=== PATIENT | male | born 1965 | race Caucasian/White ===

== ENCOUNTER 2018-11-05 09:57 | Inpatient (IN) | payer OTHER ==
[2018-11-05] MEDS ORDERED: NS 500 ML IV ONE (10:15)
[2018-11-05] MEDS ORDERED: ASPIRIN 81 MG CHEWABLE TAB PO ONE (10:15)
--- NOTE | 2018-11-05 10:20 | EDPHY ---
H & P Stated Complaint: Left shoulder pain; starting at 9:00 am - constant ache Time Seen by Provider: 11/05/18 10:08 HPI/ROS: CHIEF COMPLAINT: Left shoulder and neck ache HISTORY OF PRESENT ILLNESS: 53-year-old male generally healthy arrives via private vehicle complaining of atraumatic left shoulder and left neck "aching sensation" since approximately 9:00 a.m. Today when he arrived at work. He drove a vehicle to work. The discomfort is not reproducible with range of motion. No history of trauma. No upper extremity paresthesia. No midline C- spine pain or trauma. No chest pain. No dyspnea. PRIMARY CARE PROVIDER:No primary care provider REVIEW OF SYSTEMS: 10 systems reviewed and negative with the exception of the elements mentioned in the history of present illness PAST MEDICAL & SURGICAL HISTORY: vasectomy. SOCIAL HISTORY: Nonsmoker. No cocaine use. FAMILY HISTORY: Father with 1st cardiac stenting age early to mid 50s. PHYSICAL EXAM (Prior to examination, patient consented to physical exam, hands were washed and my usual and customary physical exam procedures followed) 1) GENERAL: Well-developed, well-nourished, alert and oriented. Appears to be in no acute distress. 2) HEAD: Normocephalic, atraumatic 3) HEENT: Pupils equal, round, reactive to light bilaterally. Sclera anicteric. Nasopharynx, oropharynx, clear, no lesions. Moist Mucous membranes. 4) NECK: Full range of motion, no meningeal signs. No carotid bruit. Neck is nontender. Range of motion elicits no reproducible pain. 5) LUNGS: Clear auscultation bilaterally, no wheezes, no rhonchi, no retractions. 6) HEART: Regular rate and rhythm, no murmur, no heave, no gallop. 7) ABDOMEN: No guarding, no rebound, no focal tenderness, negative McBurney's, negative Perez's, negative Rovsing's, negative peritoneal sign, 8) MUSCULOSKELETAL: Left upper extremity: No visible signs of trauma. No pain , full range of motion which does not reproduce his symptoms. Negative Homans no palpable cord Moving all extremities, no focal areas of tenderness, no obvious trauma. No peripheral edema or discoloration. 9) BACK: No CVA tenderness, no midline vertebral tenderness, no fluctuance, no step-off, no obvious trauma, no visual or palpable abnormality. 10) SKIN: No rash, no petechiae. 11) Psychiatric: Patient is oriented X 3, there is no agitation. DIFFERENTIAL DIAGNOSIS: In no particular order, including but not limited to myocardial ischemia, pulmonary embolus, chest wall pain, pleural inflammation and pulmonary infectious causes. - Personal History Current Tetanus/Diphtheria Vaccine: Unsure Current Tetanus Diphtheria and Acellular Pertussis (TDAP): Unsure - Medical/Surgical History Hx Asthma: No Hx Chronic Respiratory Disease: No Hx Diabetes: No Hx Cardiac Disease: No Hx Renal Disease: No Hx Cirrhosis: No Hx Alcoholism: No Hx HIV/AIDS: No Hx Splenectomy or Spleen Trauma: No - Social History Smoking Status: Former smoker Constitutional: Initial Vital Signs Temperature (C) 37 C 11/05/18 09:59 Heart Rate 77 11/05/18 09:59 Respiratory Rate 14 11/05/18 09:59 Blood Pressure 155/88 H 11/05/18 09:59 O2 Sat (%) 98 11/05/18 09:59 O2 Delivery Mode Room Air Allergies/Adverse Reactions: No Known Allergies Allergy (Unverified 11/05/18 09:59) Home Medications: Medication Instructions Recorded NK [No Known Home Meds] 11/05/18 Medical Decision Making - Diagnostics Imaging Results: Imaging Impressions Chest X-Ray 11/05/18 10:15 Impression: Chest negative for acute cardiopulmonary abnormality. ED Course/Re-evaluation: 10:18 a.m.: I discussed the case with secondary supervising physician Dr. Jamilah Corey in the ER. The patient has a self-described dull ache to his left shoulder and left neck which is not reproducible range of motion or palpation and has no history of trauma. Patient has a family history concerning for father who had 1st cardiac stenting in his early to mid 50s. Will obtain cardiac diagnostic studies. Will plan on more than likely admission for further cardiac evaluation. 10:38 a.m.: Informed by ER staff patient's troponin elevated at 0.15. Discussed with Dr Corey in ER. EKG shows normal sinus rhythm no ST elevation. Cardiology has been paged. 10:42 a.m.: Discussed the diagnostic results with the patient. He is currently complaining of 7/10 pain. Will administer IV morphine. 10:56 a.m.: Consultation with Dr. Dionte Matson who will come to the ER to evaluate patient, may perform cardiac catheterization today. 10:50 a.m.: Dr. Matson in the ER. Request repeat EKG. 11:40 a.m.: Dr. Matson will plan taking the patient to the cardiac catheterization lab and request hospitalist admit. 11:45 a.m.: Consultation with hospitalist admit to Dr. Rachel Watters 12:24 p.m.: Phone call from Dr. Dionte Matson who will admit patient primarily - Data Points Laboratory Results: Laboratory Results 11/05/18 10:25 11/05/18 10:25 11/05/18 11/05/18 11/05/18 10:27 10:25 10:25 WBC 6.61 10^3/uL 10^3/uL (3.80-9.50) RBC 4.88 10^6/uL 10^6/uL (4.40-6.38) Hgb 14.7 g/dL g/dL (13.7-17.5) Hct 42.9 % % (40.0-51.0) MCV 87.9 fL fL (81.5-99.8) MCH 30.1 pg pg (27.9-34.1) MCHC 34.3 g/dL g/dL (32.4-36.7) RDW 12.6 % % (11.5-15.2) Plt Count 235 10^3/uL 10^3/uL (150-400) MPV 9.1 fL fL (8.7-11.7) Neut % (Auto) 68.3 % % (39.3-74.2) Lymph % (Auto) 24.4 % % (15.0-45.0) [place] % (Auto) 6.1 % % (4.5-13.0) Eos % (Auto) 0.6 % % (0.6-7.6) Baso % (Auto) 0.3 % % (0.3-1.7) Nucleat RBC Rel Count 0.0 % % (0.0-0.2) Absolute Neuts (auto) 4.52 10^3/uL 10^3/uL (1.70-6.50) Absolute Lymphs (auto) 1.61 10^3/uL 10^3/uL (1.00-3.00) Absolute Monos (auto) 0.40 10^3/uL 10^3/uL (0.30-0.80) Absolute Eos (auto) 0.04 10^3/uL 10^3/uL (0.03-0.40) Absolute Basos (auto) 0.02 10^3/uL 10^3/uL (0.02-0.10) Absolute Nucleated RBC 0.00 10^3/uL 10^3/uL (0-0.01) Immature Gran % 0.3 % % (0.0-1.1) Immature Gran # 0.02 10^3/uL 10^3/uL (0.00-0.10) Sodium 140 mEq/L mEq/L (135-145) Potassium 4.5 mEq/L mEq/L (3.5-5.2) Chloride 103 mEq/L mEq/L (97-110) Carbon Dioxide 27 mEq/l mEq/l (22-31) Anion Gap 10 mEq/L mEq/L (6-14) BUN 12 mg/dL mg/dL (7-23) Creatinine 0.8 mg/dL mg/dL (0.7-1.3) Estimated GFR > 60 Glucose 106 mg/dL H mg/dL (70-100) Calcium 9.4 mg/dL mg/dL (8.5-10.4) POC Troponin I 0.15 ng/mL H ng/mL (0.00-0.08) Medications Given: Discontinued Medications Aspirin (Aspirin) 324 mg PO EDNOW ONE Stop: 11/05/18 10:16 Last Admin: 11/05/18 10:27 Dose: 324 mg Sodium Chloride (Ns) 500 mls @ 1,000 mls/hr IV EDNOW ONE PRN Reason: Protocol Stop: 11/05/18 10:44 Last Admin: 11/05/18 10:27 Dose: 500 mls Morphine Sulfate (Morphine) 4 mg IVP EDNOW ONE Stop: 11/05/18 10:44 Last Admin: 11/05/18 10:46 Dose: 4 mg Point of Care Test Results: Chemistry 11/05/18 10:27 POC Troponin I 0.15 ng/mL H ng/mL (0.00-0.08) Departure - Departure Disposition: To OP Cath/Surgery
[2018-11-05 10:40] LABS: PLATELET COUNT 235 10^3/uL (150-400)
[2018-11-05] MEDS ORDERED: VERAPAMIL 5 MG/2 ML VIAL ONE (12:06)
[2018-11-05] MEDS ORDERED: MIDAZOLAM 2 MG/2 ML VIAL ONE ×2 (12:06→13:12)
[2018-11-05] MEDS ORDERED: LIDOCAINE 1% 300 MG/30 ML SDV ONE (12:06)
[2018-11-05] MEDS ORDERED: HEPARIN 10,000 UNIT/10 ML MDV (1,000 UNIT/ML) ONE (12:06)
[2018-11-05] MEDS ORDERED: IOPAMIDOL (ISOVUE-370) 150 ML BTL IV ONE (12:06)
[2018-11-05] MEDS ORDERED: fentaNYL 100 MCG/2 ML INJ ONE (12:06)
--- NOTE | 2018-11-05 12:18 | PDPROPOC ---
Sedation Plan of Care Sedation Plan of Care: vital signs stable, mental status noted, patient educated of risks, benefits, alternatives, patient can tolerate sedation ASA Classification: ASA 3 Planned drugs: fentanyl, midazolam Mallampati Score: Class 2 Mallampati Reference Image: Patient passed 3-3-2 rule?: Yes
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
--- NOTE | 2018-11-05 12:48 | PDDXCAT ---
Diagnostic Cath Note - . Date: 11/05/18 Dental Billing Specialist: Huyen Indication: CCC Class III and IV angina on medical treatment, other (elevated troponin, family history of cardiovascular disease) - Procedure Access: left wrist Procedure: left heart catheterization, coronary angiography, left ventriculogram - Materials Left Heart Cath size: 5F Left Heart Cath materials: JL3.5, JR4.0, pigtail - Findings-Left Heart Catheterization LM: The left main is 6mm in size and short. The vessel bifurcates into a circumflex and LAD system. LAD: The left anterior descending is 3mm in size and gives rise to three diagonal vessels. There is a complex atheroma of 70% involving the bifurcation of the LAD and first diagonal branch. There is a 50% stenosis in the ostium of the first diagonal and 40% stenosis of the second diagonal. The third diagonal is the smallest diagonal and there is an 80% ostial obstruction of the vessel with a subtotal occlusion at the alpha and beta branches. The LAD courses to the anterior apex with luminal irregularities consistent with atherosclerosis. There is a 50% stenosis at the distal third and 80% lesion near the apex. LCX: The circumflex is 4mm and quickly gives rise to a high obtuse marginal branch. There is a 85% ostial obstruction in the high obtuse marginal branch.There is a 90% occlusion in the proximal segment of the left circumflex. RCA: The right coronary artery is 3mm in size and dominant. The vessel gives rise to a PDA and PLV branch. There is an 80% obstruction of the proximal RCA. EDP: 14mmHg LVEF: 65% Wall motion: On the LV gram there is normal LV systolic function. The EF is 65% . There are no resting segmental wall motion abnormalities. The visualized portion of the thoracic aortic valve reveals three sinuses of valsalva most consistent with a trileaflet valve. There is no gradient on pullback across the aortic valve. THere is no evidence of hal dissection or aneurysm formation of the thoracic aorta. - Findings-Right Heart Catheterization AO: 128/62/97 Complications: NONE Estimated blood loss: <50ml Closure method: TR Band Assessment: The patient has severe coronary disease with critical obstruction in the ostial high obtuse marginal branch of 85% and 90% obstruction in the proximal segment of the left circumflex. There is diffuse disease throughout the LAD which courses to the anterior apex with evidence of atherosclerosis. The right coronary system is dominant with an 80% obstruction in the proximal segment of the vessel. Plan: The patient should proceed with bypass surgery with MARCH to the LAD, SVG to the first diagonal, SVG to the circumflex OM and SVG to the high obtuse marginal branch. Intervention: NONE
[2018-11-05] MEDS ORDERED: ETOMIDATE 40 MG/20 ML INJ ONE (13:18)
[2018-11-05] MEDS ORDERED: HYDROCODONE/APAP 5/325 TAB PO PRN (13:58)
[2018-11-05] MEDS ORDERED: OXYCODONE/APAP 5/325 TAB PO PRN (13:58)
[2018-11-05] MEDS ORDERED: NITROGLYCERIN 0.4 MG BTL SL PRN (13:58)
[2018-11-05] MEDS ORDERED: ONDANSETRON 4 MG/2 ML VIAL IVP PRN (13:58)
[2018-11-05] MEDS ORDERED: ATROPINE SULFATE 1 MG/10 ML SYR IVP PRN (13:58)
--- NOTE | 2018-11-05 16:29 | PDMN ---
Medical Necessity Medical necessity: MCG: S390 CABG 4 days ( pend) pt came in with CP-sig family hx. cardiac cath revealed severe coronary disease with critical obstruction in the ostial high obtuse marginal branch of 85% and 90% obstruction in proximal segment of L circ., diffuse disease throughout LAD R coronary system is dominant with 80% obstruction in proximal segment of the vessel. rec: bypass sgy with MARCH to LAD, SVG to first Dg, SVG to circ. OM and SVG to high obtuse marginal branch
--- NOTE | 2018-11-06 15:38 | ASMTCMCOM ---
CM Note CM Note Notes: 11/06/2018 Case Management Note Discussed with RN. Pt admitted with coronary artery disease with a CABG planned for tomorrow. Met w/pt to discuss d/c needs. Pt works at [employer]. Pt is to Heather [phone]. Pt lives with and 3 children ages 20, 18 and 16. The older two children attend [employer] and the 16 y.o. attends [employer]. Case Management will formulate d/c plan after evals post surgery in coordination with surgery team. Anticipating discharge to cardiac outpatient rehab. Case Management d/c poc: to be determined. Case Management to follow. Date Signed: 11/06/2018 03:37 PM Electronically Signed By:Henrietta Wilkinson RN
--- NOTE | 2018-11-06 17:21 | PDCARPN ---
Cardiology Progress Note Chief Complaint: I am feeling Ok without shoulder pain Assessment/Plan: Assessment: 1. 4 vessel coronary disease with severe obstructive coronary disease and plan for bypass surgery on tomorrow afternoon. All questions answered. The patient will require echocardiogram as well as carotid ultrasound prior to CABG tomorrow. Plan: As above 11/06/18 17:18 Reviewed/Discussed With: family, multidisciplinary team Time Spent with Patient: greater than 25 minutes Time Spent with Patient: Greater than 25 minutes spent on this patients care, greater than 50% of time spent counseling, educating, and coordinating care regarding the above mentioned plan. Objective: Vital Signs (8 Hrs) Temp Pulse Resp BP Pulse Ox 11/06/18 16:00 36.7 C 54 L 14 134/76 H 95 11/06/18 12:00 36.6 C 58 L 16 147/91 H 98 Intake/Output (24 Hrs) 11/05/18 11/06/18 11/07/18 05:59 05:59 05:59 Intake Total 2025 Output Total 400 500 Balance 1625 -500 Intake: Oral (ml) 800 IV Intake (ml) 700 IV Infused (ml) 525 Output: Urine (ml) 400 500 Urinal 400 500 Other: Weight 72.575 kg Intake Quantity Yes Sufficient Number of Voids Urinal 1 Result Diagrams: 11/05/18 10:25 11/06/18 03:36 Telemetry: No significant tachy or wei dysrhythmia. Echocardiogram: pending in AM - Physical Exam Constitutional: WDWN, no apparent distress Eyes: PERRL, EOMI, anicteric sclera Ears, Nose, Mouth, Throat: moist mucous membranes Cardiovascular: regular rate and rhythm, no murmurs, no rubs, no gallops Respiratory: clear to auscultate bilat, No reduced air movement Gastrointestinal: normoactive bowel sounds, no tenderness Neurologic: AAOx3 Psychiatric: cooperative - . Pending Discharge Within 24 Hours: No Pending Discharge Within 48 Hours: No ICD10 Worksheet Patient Problems: Problems Problem Status Onset Coronary artery disease Acute - ICD10 Problem Qualifiers (1) Coronary artery disease
[2018-11-06] MEDS ORDERED: TEMAZEPAM 15 MG CAP PO PRN (21:00)
[2018-11-06] MEDS ORDERED: CHLORHEXIDINE GLUC HIBICLENS 118 ML BTL TP SCH (21:00)
[2018-11-06] MEDS: MUPIROCIN 2% 22 GM OINT NS SCH (21:08)
[2018-11-07] MEDS ORDERED: PAPAVERINE HCL 60 MG/2 ML SDV ONE (07:12)
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
[2018-11-07] MEDS ORDERED: AMINOCAPROIC ACID 5 GM/20 ML VIAL IV ONE (09:00)
[2018-11-07] MEDS ORDERED: MANNITOL 25% 12.5 GM/50 ML VIAL IVP ONE (09:00)
[2018-11-07] MEDS ORDERED: VERAPAMIL 5 MG, NITROGLYCERIN 2.5 MG, HEPARIN 500 UNIT, SODIUM BICARBONATE 0.2 MEQ in L... MISC ONE (09:00)
[2018-11-07] MEDS ORDERED: INSULIN REGULAR HUMAN 100 UNIT in NS 100 ML IV ONE (09:00)
[2018-11-07] MEDS ORDERED: niCARdipine/NACL 200 ML IV ONE (09:00)
[2018-11-07] MEDS ORDERED: ceFAZolin 2 GM/DEXTROSE 100 ML IV ONE (09:00)
[2018-11-07] MEDS ORDERED: PHENYLEPHRINE HCL 50 MG in NS 250 ML IV ONE (09:00)
[2018-11-07] MEDS ORDERED: CITRATE DEXTROSE SOLN 500 ML BAG MISC ONE (09:00)
[2018-11-07] MEDS ORDERED: CARDIOPLEGIC SOLUTION 1,052.8 ML PF ONE (09:00)
--- NOTE | 2018-11-07 09:01 | ECHO ---
[email or web address] [address] Main: [phone] Echocardiography Examination Transthoracic Name: JILLIAN HOLLINGSWORTH MR#: Study Date: 11/07/2018 Study Time: 07:54 AM Date of : 1965 Age: 53 year(s) Height: 177.8 cm (70 in.) Weight: 71.21 kg (157 lb.) BSA: 1.88 m2 Gender: Male Examination: Echo Contrast: Image Quality: Rhythm: Normal sinus rhythm Heart Rate: 70 bpm BP: 145 mmHg/83 mmHg Indication: Pre Op CABG Procedure Staff Referring Physician: Associate Professor Of Geography: Reading Physician: Deandra Nieves MD Requesting Provider: Leroy Bolanos MD Ordering Physician: Brian Lindquist Indication: Pre Op CABG Measurements Chambers AV/MV Label Value Normal Value Label Value Normal Value LVOT Vmax 1.11 m/s (0.7m/s - 1.1m/s) AV PGmax 7 mmHg LVOTd 2.1 cm (1.9cm - 2.1cm) AV PGmean 3 mmHg LVOT VTI 22.5 cm (18cm - 22cm) AV Vmax 1.32 m/s LVDd, 2D 4.8 cm (4.2cm - 5.9cm) KENY (Vmax) 2.9 cm2 LVDs, 2D 3.6 cm (2.1cm - 4cm) KENY (VTI) 2.8 cm2 IVSd, 2D 0.9 cm (0.6cm - 1.1cm) MV E Vmax 0.72 m/s LVPWd, 2D 1.1 cm (0.6cm - 1cm) MV A Vmax 0.65 m/s LVEF, 2D 50 % (54% - 74%) MV E/A 1.11 LVOT PGmean 2 mmHg MV E/E' septal 11.4 (0.5 - 1.7) LVOT Vmean 0.67 m/s MV E' septal 0.06 m/s LA Volume, BP 38 ml (18ml - 58ml) MR Vmax 4.28 m/s LADs, 2D 3.6 cm (3cm - 4cm) TV/PV LAESV index, BP 20.2 ml/m2 Label Value Normal Value Additional Vessels PV PGmax 4 mmHg Label Value Normal Value PV Vmax, Caliper 1.06 m/s (0.6m/s - 0.9m/s) AoRoot, MM 3.2 cm (2.2cm - 3.7cm) Conclusions Patient: JILLIAN HOLLINGSWORTH MRN: Study Date: 11/07/2018 Page 1 of 2 07:54 AM 1. The left ventricle is normal in size. Low normal LV systolic function with an ejection fraction of 55%. Mild inferolateral hypokinesis. 2. The right ventricle is normal in size and systolic function. 3. Normal biatrial size 4. Trivial to mild mitral regurgitation. 5. The aortic valve is normal in appearance and function. 6. Unable to estimate PA systolic pressure. 7. No previous echo Findings Left Ventricle: Left ventricle is normal in size. Low normal left ventricular systolic function. The EF is visually estimated to be 55 %. EF range is estimated at 50 % - 55 %. Left ventricle wall thickness is normal. There is mild inferolateral hypokinesis Right Ventricle: Normal size right ventricle. Right ventricular systolic function is normal. Left Atrium: The left atrium is normal in size. Right Atrium: The right atrium is normal in size. Mitral Valve: Mitral valve appears structurally normal. Trivial to mild mitral regurgitation. Aortic Valve: Aortic leaflets are normal in appearance and function. No aortic valve regurgitation. There is no aortic stenosis. Tricuspid Valve: Tricuspid valve leaflets are normal in appearance and function. No tricuspid regurgitation. Pulmonic Valve: Pulmonic leaflets are normal in appearance and function. No pulmonic valve regurgitation is evident. Aorta: The aorta is normal. The aortic root size in M-mode measures 3.2 cm. Aorta Measurements AoRoot, MM is 3.2 cm. Pericardium: The pericardium is normal in appearance. No pericardial effusion. Exam Details Procedure Ordered: Echo (No Signature Object) Patient: JILLIAN HOLLINGSWORTH MRN: Study Date: 11/07/2018 Page 2 of 2 07:54 AM [id number]
[2018-11-07] MEDS ORDERED: LR 1,000 ML IV ONE (09:09)
[2018-11-07] MEDS: MUPIROCIN 2% 22 GM OINT NS SCH ×2 (09:26→21:11)
[2018-11-07] MEDS ORDERED: PROTAMINE SULFATE 50 MG/5 ML VIAL IVP ONE (11:41)
[2018-11-07] MEDS ORDERED: AMINOCAPROIC ACID 5 GM/20 ML VIAL ONE ×3 (11:42→11:47)
[2018-11-07] MEDS ORDERED: NA BICARBONATE 50 MEQ/50 ML VIAL ONE ×2 (11:42→11:44)
[2018-11-07] MEDS ORDERED: CALCIUM CHLORIDE 1 GM/10 ML INJ ONE ×2 (11:43→11:47)
[2018-11-07] MEDS ORDERED: MILRINONE/DEXTROSE/100 ML BAG IV ONE (11:43)
[2018-11-07] MEDS ORDERED: niCARdipine/NACL/200 ML BAG IV ONE (11:44)
[2018-11-07] MEDS ORDERED: HEPARIN 10,000 UNIT/10 ML MDV (1,000 UNIT/ML) ONE ×2 (11:44→11:47)
[2018-11-07] MEDS ORDERED: ceFAZolin 1 GM VIAL ONE (11:45)
[2018-11-07] MEDS ORDERED: ADENOSINE 6 MG/2 ML VIAL ONE (11:45)
[2018-11-07] MEDS ORDERED: NITROGLYCERIN/D5W 50 MG/250 ML BOTTLE IV ONE (11:45)
[2018-11-07] MEDS ORDERED: DOPamine/DEXTROSE 400 MG/250 ML BAG IV ONE (11:45)
[2018-11-07] MEDS ORDERED: AMIODARONE HCL 150 MG/3 ML VIAL ONE ×2 (11:45→11:47)
[2018-11-07] MEDS ORDERED: ALBUMIN 5% 250 ML BOTTLE IV ONE (11:46)
[2018-11-07] MEDS ORDERED: SODIUM BICARBONATE 50 MEQ/50 ML SYR ONE (11:46)
[2018-11-07] MEDS ORDERED: CITRATE DEXTROSE SOLN 500 ML BAG ONE (11:47)
[2018-11-07] MEDS ORDERED: LIDOCAINE 2% 100 MG/5 ML SYR ONE ×2 (11:47→12:03)
[2018-11-07] MEDS ORDERED: MAGNESIUM SULFATE 1 GM/2 ML VIAL ONE (11:48)
[2018-11-07] MEDS ORDERED: methylPREDNISolone SOD SUCC 1 GM/8 ML VIAL ONE (11:48)
[2018-11-07] MEDS ORDERED: MIDAZOLAM 2 MG/2 ML VIAL ONE ×2 (11:55→12:02)
[2018-11-07] MEDS ORDERED: MIDAZOLAM 2 MG/2 ML VIAL IVP ONE (11:56)
[2018-11-07] MEDS ORDERED: DEXMEDETOMIDINE HCL 400 MCG in NS 100 ML IV SCH (12:00)
[2018-11-07] MEDS ORDERED: PROPOFOL/EMULSION 500 MG/50 ML BOTTLE IV ONE ×2 (12:02→15:14)
[2018-11-07] MEDS ORDERED: REMIFENTANIL HCL 1 MG VIAL ONE (12:02)
[2018-11-07] MEDS ORDERED: fentaNYL 250 MCG/5 ML INJ ONE (12:02)
[2018-11-07] MEDS ORDERED: ROCURONIUM 100 MG/10 ML VIAL ONE (12:02)
[2018-11-07] MEDS ORDERED: ePHEDrine SULFATE 25 MG/5 ML SYR ONE (12:03)
[2018-11-07] MEDS ORDERED: DEXAMETHASONE 4 MG/ML VIAL ONE (12:03)
[2018-11-07] MEDS ORDERED: ONDANSETRON 4 MG/2 ML VIAL ONE (12:03)
[2018-11-07] MEDS ORDERED: PHENYLEPHRINE HCL 100 MCG/ML SYR ONE ×2 (12:03→16:51)
[2018-11-07] MEDS ORDERED: LIDOCAINE HCL 160 MG/4 ML LTA KIT TP ONE (12:07)
[2018-11-07] MEDS ORDERED: LABETALOL HCL 5 MG/ML 20 ML MDV ONE (13:13)
--- NOTE | 2018-11-07 13:18 | PDANEPAE ---
ANE History of Present Illness CAD s/f CABG ANE Past Medical History - Cardiovascular History Hx Chest Pain: Yes Hx Coronary Artery / Peripheral Vascular Disease: Yes - Pulmonary History Hx Oxygen in Use at Home: No Hx Sleep Apnea: No Sleep Apnea Screening Result - Last Documented: Negative - Endocrine History Hx Diabetes: No ANE Review of Systems Review of Systems: - Exercise capacity Exercise capacity: >=4 METS ANE Patient History - Allergies Allergies/Adverse Reactions: No Known Allergies Allergy (Unverified 11/05/18 09:59) - Home Medications Home medications: home medication list seen and reviewed Home Medications: NK [No Known Home Meds] 11/05/18 [Last Taken Unknown] - NPO status NPO Status: no food or drink >8 hours NPO Since - Liquids (Date): 11/07/18 NPO Since - Liquids (Time): 00:00 NPO Since - Solids (Date): 11/07/18 NPO Since - Solids (Time): 00:00 - Anes Hx Anes Hx: no prior problems - Smoking Hx Smoking Status: Former smoker - Alcohol Use Alcohol Use: Occasionally (quit 2 years ago) - Family Anes Hx Family Anes Hx: none ANE Labs/Vital Signs - Labs Result Diagrams: 11/05/18 10:25 11/06/18 03:36 - Vital Signs Blood Pressure: 139/92 Heart Rate: 72 Respiratory Rate: 10 O2 Sat (%): 94 Height: 177.8 cm Weight: 71.6 kg ANE Physical Exam - Airway Neck exam: FROM Mallampati Score: Class 2 Mouth exam: normal dental/mouth exam - Pulmonary Pulmonary: no respiratory distress - Cardiovascular Cardiovascular: regular rate and rhythym - ASA Status ASA Status: II ANE Anesthesia Plan Anesthesia Plan: general endotracheal anesthesia Lines/Monitors: arterial line, central line Urgent/Emergent Case: Sarikachayito nannette completed preop but documented later for safe timely pt care
[2018-11-07] MEDS ORDERED: ROCURONIUM 50 MG/5 ML VIAL ONE ×2 (15:55→16:58)
[2018-11-07] MEDS ORDERED: FIBRINOGEN/THROMBIN(HUMAN) 9.5 CM X 4.8 CM PATCH (TACHOSIL) TP ONE (16:40)
[2018-11-07] MEDS ORDERED: NOREPINEPHRINE BITARTRATE 16 MG in NS 250 ML IV ONE (17:00)
[2018-11-07] MEDS ORDERED: LACTULOSE 20 GM/30 ML UDCUP PO PRN (17:38)
[2018-11-07] MEDS ORDERED: PANTOPRAZOLE SODIUM 40 MG VIAL IVP ONE ×2 (17:38→20:30)
[2018-11-07] MEDS ORDERED: POTASSIUM Cl (KCl) 50 ML IV PRN (17:38)
[2018-11-07] MEDS ORDERED: BISACODYL 10 MG SUPP PR PRN (17:38)
[2018-11-07] MEDS ORDERED: CEPACOL LOZENGE PO PRN (17:38)
[2018-11-07] MEDS ORDERED: MEPERIDINE 25 MG/0.5 ML AMP IVP PRN (17:38)
[2018-11-07] MEDS ORDERED: ONDANSETRON DISINTEGRATING 4 MG TAB PO PRN (17:38)
[2018-11-07] MEDS ORDERED: D50W 25 GM/50 ML SYR IVP PRN (17:38)
[2018-11-07] MEDS ORDERED: METOCLOPRAMIDE 10 MG/2 ML VIAL IVP PRN (17:38)
[2018-11-07] MEDS ORDERED: ONDANSETRON 4 MG/2 ML VIAL IVP PRN (17:38)
[2018-11-07] MEDS ORDERED: fentaNYL 100 MCG/2 ML INJ IVP PRN (17:38)
[2018-11-07] MEDS ORDERED: SODIUM CL NASAL 45 ML BTL EACHNARE PRN (17:38)
[2018-11-07] MEDS ORDERED: POLYETHYLENE GLYCOL 3350 17 GM PKT PO PRN (17:38)
[2018-11-07] MEDS ORDERED: ACETAMINOPHEN 650 MG SUPP PR PRN (17:38)
[2018-11-07] MEDS ORDERED: MAGNESIUM HYDROXIDE 30 ML UDCUP PO PRN (17:38)
[2018-11-07] MEDS ORDERED: NS 1,000 ML IV SCH (17:45)
--- NOTE | 2018-11-07 17:45 | POSTOPPROG ---
Post Op Note Date of Operation: 11/07/18 Surgeon: Leroy Bolanos Assistant: Brian Lindquist PA-C Anesthesiologist: Jose Anesthesia: GET(General Endotracheal) Pre-op Diagnosis: CAD Post-op Diagnosis: CAD Procedure: CABGx5, EVH Left Inf/Abcess present in the surg proc area at time of surgery?: No EBL: Minimal Drains: Other (CTx3 (BL pleural, mediastinal))
[2018-11-07] MEDS ORDERED: niCARdipine/NACL 200 ML IV SCH (18:00)
[2018-11-07] MEDS ORDERED: INSULIN REGULAR HUMAN 100 UNIT in NS 100 ML IV SCH (18:00)
[2018-11-07] MEDS: ALBUMIN 5% 250 ML IV PRN ×2 (19:45→20:24)
[2018-11-07] MEDS ORDERED: ALBUMIN 5% 500 ML BOTTLE IV ONE (20:34)
[2018-11-07] MEDS ORDERED: ALBUMIN 5% 500 ML IV ONE (21:00)
[2018-11-07] MEDS ORDERED: CHLORHEXIDINE GLUCONATE 15 ML UDL PO SCH (21:00)
[2018-11-07] MEDS: FAMOTIDINE 20 MG/NACL 50 ML IV SCH (21:10)
[2018-11-07] MEDS: SENNOSIDES/DOCUSATE SODIUM TAB PO SCH (21:11)
[2018-11-07] MEDS: ceFAZolin 2 GM/DEXTROSE 100 ML IV SCH (22:09)
[2018-11-08] MEDS ORDERED: ALBUMIN 5% 250 ML BOTTLE IV ONE (01:18)
[2018-11-08] MEDS ORDERED: ALBUMIN 5% 250 ML IV ONE (01:30)
[2018-11-08 04:26] LABS: PLATELET COUNT 119 10^3/uL (150-400)
[2018-11-08] MEDS: HYDROCODONE/APAP 5/325 TAB PO PRN ×2 (05:04→09:13)
[2018-11-08] MEDS: ceFAZolin 2 GM/DEXTROSE 100 ML IV SCH ×3 (05:10→22:55)
--- NOTE | 2018-11-08 07:25 | SOAPPROG ---
SOAP Progress Note Assessment/Plan: Assessment: POD#1 CABG x 5 (MARCH-LAD, SV-RI, SV-OM2, SV-PDA, SV-PLB), EVH LLE NSTEMI/severe CAD w RWMA and low normal LV systolic fx - Preserved LV systolic fx post revasc. Hemodynamically stable early postop course. Extubated without incident. No vasoactive support. No dysrhythmias. Minimal volume overload. Secondary prevention w ASA, BB and statin when appropriate. ARB if sufficient BP. Acute expected blood loss anemia - Stable. No transfusions required. VTE prophylaxis with SCDs. Current everyday vaper - Desire to reduce/quit expressed. Smoking cessation aids declined at this time. Plan: Routine POD#1 orders re. wires, lines, orals and mobility. Consider removal ant med drain later today. Tx to PCU. 11/08/18 07:25 Subjective: Doing ok. A little nausea earlier, tolerating sips and chips now. Objective: Vital Signs Temp Pulse Resp BP Pulse Ox 36.8 C 78 32 H 116/77 90 L 11/08/18 04:00 11/08/18 07:00 11/08/18 07:00 11/08/18 07:00 11/08/18 07:00 Laboratory Results 11/08/18 04:00 11/08/18 04:00 11/07/18 11/08/18 11/09/18 05:59 05:59 05:59 Intake Total 775 1973 Output Total 1450 2960 Balance -675 -987 HR and BP controlled. CIs > 2.2 w vigorous auto-diuresis. Minimal suppl O2 req. CXR-> No PTX, mild pulm vasc congestion, small undrained left pl effusion vs atelectasis. No sig CTOP. Labs as expected. Physical Exam - Physical Exam General Appearance: alert, no apparent distress Respiratory: crackles (bases), other (CTs x 3 y-d to pleurovac, serosang drainage, no air leak) Cardiac/Chest: regular rate, rhythm, friction rub, other (Sternal dressing stained centrally. Vwires intact.) Abdomen: normal bowel sounds, non-tender, soft Skin: warm/dry Extremities: other (No visible edema. LLE wrap intact.) ICD10 Worksheet Patient Problems: Problems Problem Status Onset Acute blood loss as cause of postoperative anemia Acute Coronary artery disease Acute S/P CABG x 5 Acute
[2018-11-08] MEDS: FAMOTIDINE 20 MG/NACL 50 ML IV SCH (08:26)
[2018-11-08] MEDS: ACETAMINOPHEN 325 MG TAB PO PRN ×3 (08:26→21:10)
[2018-11-08] MEDS: SENNOSIDES/DOCUSATE SODIUM TAB PO SCH ×2 (10:06→21:09)
[2018-11-08] MEDS: ASPIRIN 81 MG CHEWABLE TAB PO SCH (10:08)
[2018-11-08] MEDS: MUPIROCIN 2% 22 GM OINT NS SCH ×2 (10:09→21:13)
[2018-11-08] MEDS: PANTOPRAZOLE SODIUM 40 MG TAB PO SCH (10:09)
--- NOTE | 2018-11-08 11:23 | GOP ---
[f rep st] OPERATIVE REPORT DATE OF OPERATION: 11/07/2018 SURGEON: Leroy Bolanos MD CHECK SERVICES CLERK: Brian Lindquist PA-C PREOPERATIVE DIAGNOSIS: Coronary artery disease. POSTOPERATIVE DIAGNOSIS: Coronary artery disease. PROCEDURE PERFORMED: Quintuple coronary artery bypass grafting. FINDINGS: The vein was all good quality 3 to 4 mm vessel. The mammary was a good quality 1 to 1.5 m m vessel. The distal targets were as follows: All of the vessels had scattered calcification. The right coronary had a solid posterior wall, but did have a soft anterior spot and this was a good reas onable target with a 3 mm vessel. The distal marginal was minute as it came out of the AV groove. I t was a 1 mm vessel. This was selected as the target and was grafted. Ultimately, the ramus as well as the diagonal and the LAD were all intramyocardial vessels. It should be noted the heart was enti rely covered in fat. INDICATIONS: The patient is a 53-year-old gentleman who had some atypical chest pain. He has a smok ing history. This prompted cardiac catheterization which revealed significant multivessel coronary ar jasiel disease. The patient was referred for surgical revascularization. DESCRIPTION OF PROCEDURE: The patient was taken to the operating room and placed on the operating ta ble in supine position. After induction of general anesthesia and single-lumen endotracheal tube int ubation, patient was prepped and draped sterilely. A standard median sternotomy was performed and le ft internal mammary artery was taken down with electrocautery and hemoclips. The mammary was divided and found to have good flow. The patient was fully heparinized at this point and was then cannulate d with a Sarns 8.0 soft flow aortic cannula as well as a dual stage venous right atrial cannula. Car diopulmonary bypass was instituted. The distal vessels were marked for grafting with the exception o f intramyocardial vessels which had to be dissected after the cross-clamp was applied. Once the hear t was arrested, we opened the distal right coronary, it was calcified as noted above. We anastomosed the vein graft end-to-side using running 7-0 Prolene. The distal marginal vessel we dissected as it came out of the AV groove was extremely small, but I opened it and anastomosed the vein graft end-to -side to a 1 mm vessel over a 1 mm shunt using running 7-0 Prolene. Next, we began the search for th e ramus. This was difficult because it was under the fat and muscle. Once we were able to get it ex posed, we opened it. It was also very calcified. It was anastomosed end-to-side to a separate vein graft using running 7-0 Prolene. Next, the 1st diagonal similarly was intramyocardial, dissected, it was ultimately exposed and anastomosed end-to-side to a separate vein graft and then lastly, the LAD was deeply intramyocardial, so we had to anastomose this distally almost toward the apex. Fortunate ly, we had a long good quality mammary and the anastomosis was performed distally using running 7-0 P rolene. This was tacked to the epicardium and allowed to flow freely. The cross-clamp was removed a nd a partial occlusion clamp was placed and the 4 vein grafts were each individually anastomosed end- to-side to the ascending aorta using running 6-0 Prolene. These were de-aired and allowed to flow fr eely. Left, right, and mediastinal chest tubes were placed. Two ventricular pacing wires were also placed. Once the cross-clamp was removed, the patient was from cardiopulmonary bypass with out difficulty. Protamine was administered. The patient was decannulated. All the cannulation site s were doubly secured with Prolene suture and once hemostasis had been achieved, the heart was covere d with pericardium and fat and the chest was closed with #6 stainless steel wires. Subcutaneous tiss ue and skin were closed with running Vicryl suture. The patient tolerated the procedure well and he returned to the ICU in stable condition. SUMMARY OF GRAFTS: Left internal mammary artery to the LAD, saphenous vein graft from the aorta to D 1, saphenous vein graft from aorta to ramus, saphenous vein graft from aorta to distal marginal, saph enous vein graft from the aorta to RCA. Endoscopic vein harvest from the entire left leg the. /[id number]/MODL
[2018-11-08] MEDS ORDERED: oxyCODONE IR 5 MG TAB PO PRN (13:00)
--- NOTE | 2018-11-08 13:19 | CPEKG ---
Test Reason : OPEN Blood Pressure : / mmHG Vent. Rate : 066 BPM Atrial Rate : 066 BPM P-R Int : 174 ms QRS Dur : 081 ms QT Int : 430 ms P-R-T Axes : 083 085 084 degrees QTc Int : [address] elev, probable normal early repol pattern Confirmed by Chaim Lau ([id number]) on 11/08/2018 1:18:26 PM Referred By: Shanae Watters Confirmed By:Chaim Lau
--- NOTE | 2018-11-08 14:51 | ASMTCMCOM ---
CM Note CM Note Notes: CM reviewed pts chart. Pt completed CABG x5. Therapies have cleared pt to d/c home without any needs. Pt will most likely d/c independent with outpatient cardiac rehab. CM to follow directions/recommendations of surgery team. CM available for changes. Plan: Independent Date Signed: 11/08/2018 02:50 PM Electronically Signed By:CECILIO Todd
[2018-11-08] MEDS: METOPROLOL TARTRATE 25 MG TAB PO SCH (21:10)
[2018-11-09] MEDS: ceFAZolin 2 GM/DEXTROSE 100 ML IV SCH (05:33)
[2018-11-09 05:43] LABS: PLATELET COUNT 117 10^3/uL (150-400)
[2018-11-09] MEDS: HYDROCODONE/APAP 5/325 TAB PO PRN ×2 (07:55→21:16)
[2018-11-09] MEDS: METOPROLOL TARTRATE 25 MG TAB PO SCH ×2 (09:31→21:16)
[2018-11-09] MEDS: PANTOPRAZOLE SODIUM 40 MG TAB PO SCH (09:31)
[2018-11-09] MEDS: ASPIRIN 81 MG CHEWABLE TAB PO SCH (09:31)
[2018-11-09] MEDS: SENNOSIDES/DOCUSATE SODIUM TAB PO SCH ×2 (09:31→21:16)
[2018-11-09] MEDS: ACETAMINOPHEN 325 MG TAB PO PRN ×2 (09:32→14:32)
[2018-11-09] MEDS: MUPIROCIN 2% 22 GM OINT NS SCH ×2 (09:34→21:20)
[2018-11-09] MEDS ORDERED: diphenhydrAMINE 25 MG CAP PO PRN (10:29)
--- NOTE | 2018-11-09 10:54 | SOAPPROG ---
SOAP Progress Note Assessment/Plan: Assessment: POD#2 CABG x 5 (MARCH-LAD, SV-RI, SV-OM, SV-RCA, SV-Dx), EVH LLE NSTEMI/severe CAD w RWMA and low normal LV systolic fx - Preserved LV systolic fx post revasc. Hemodynamically stable early postop course. Extubated without incident. No vasoactive support. No dysrhythmias. Minimal volume overload. Secondary prevention w ASA, BB and statin. ARB if sufficient BP. Acute expected blood loss anemia - Stable. No transfusions required. VTE prophylaxis with SCDs. Current everyday vaper - Desire to reduce/quit expressed. Smoking cessation aids declined at this time. Plan: D/c chest tubes today Benadryl for sleep prn Start Lipitor Likely ready for discharge to home in 24-48hrs Subjective: "I had a terrible night of sleep last night." Patient reports adequate pain control with [place], however Oxy IR causes him to feel "loopy". Objective: Vital Signs Temp Pulse Resp BP Pulse Ox 36.6 C 99 18 111/76 92 11/09/18 08:00 11/09/18 08:00 11/09/18 08:00 11/09/18 08:00 11/09/18 08:00 Laboratory Results 11/09/18 05:30 11/09/18 05:30 11/08/18 11/09/18 11/10/18 05:59 05:59 05:59 Intake Total 1973 590 Output Total 2960 1775 Balance -987 -1185 Physical Exam - Physical Exam General Appearance: WD/WN, alert, no apparent distress Neck: supple Respiratory: lungs clear, decreased breath sounds (bases), other (No wheezing, rhonchi) Cardiac/Chest: regular rate, rhythm, other (no murmurs/rubs. sternum stable. sternotomy c/d/i. ) Abdomen: normal bowel sounds, non-tender, soft Skin: normal color, warm/dry Extremities: other (Warm, no edema.) Neuro/Psych: alert, normal mood/affect, oriented x 3 ICD10 Worksheet Patient Problems: Problems Problem Status Onset Acute blood loss as cause of postoperative anemia Acute Coronary artery disease Acute S/P CABG x 5 Acute
[2018-11-09] MEDS: ATORVASTATIN CALCIUM 40 MG TAB PO SCH (21:16)
--- NOTE | 2018-11-10 07:52 | SOAPPROG ---
SOAP Progress Note Assessment/Plan: Assessment: POD#3 CABG x 5 (MARCH-LAD, SV-RI, SV-OM, SV-RCA, SV-Dx), EVH LLE NSTEMI/severe CAD w RWMA and low normal LV systolic fx - Preserved LV systolic fx post revasc. Hemodynamically stable postop course. Extubated without incident. No vasoactive support. No dysrhythmias. Minimal volume overload. Secondary prevention w ASA, BB and statin. ARB if sufficient BP. Acute expected blood loss anemia - Stable. No transfusions required. VTE prophylaxis with SCDs. Current everyday vaper - Desire to reduce/quit expressed. Smoking cessation aids declined at this time. Plan: D/c pacing wires today. D/c home tomorrow. Continue bowel protocol for continued constipation. Subjective: Patient reports sleeping well last night with Benadryl. Patient reports good pain control. Objective: Vital Signs Temp Pulse Resp BP Pulse Ox 36.6 C 103 H 14 128/83 H 95 11/10/18 07:17 11/10/18 07:17 11/10/18 07:17 11/10/18 07:17 11/10/18 07:17 Laboratory Results 11/10/18 05:05 11/09/18 05:30 11/09/18 11/10/18 11/11/18 05:59 05:59 05:59 Intake Total 590 700 Output Total 1775 1795 Balance -1185 -1095 Physical Exam - Physical Exam General Appearance: WD/WN, alert, no apparent distress Neck: supple Respiratory: lungs clear, normal breath sounds, other (No wheezing, rhonchi. ) Cardiac/Chest: regular rate, rhythm, other (No murmur or rubs. Sternum stable. Sternotomy c/d/i. ) Abdomen: normal bowel sounds, non-tender, soft Skin: normal color, warm/dry Extremities: other (Warm, no edema.) Neuro/Psych: alert, normal mood/affect, oriented x 3 ICD10 Worksheet Patient Problems: Problems Problem Status Onset Acute blood loss as cause of postoperative anemia Acute Coronary artery disease Acute S/P CABG x 5 Acute
[2018-11-10] MEDS: ASPIRIN 81 MG CHEWABLE TAB PO SCH (08:43)
[2018-11-10] MEDS: METOPROLOL TARTRATE 25 MG TAB PO SCH ×2 (08:44→22:43)
[2018-11-10] MEDS: SENNOSIDES/DOCUSATE SODIUM TAB PO SCH ×2 (08:44→23:12)
[2018-11-10] MEDS: PANTOPRAZOLE SODIUM 40 MG TAB PO SCH (08:44)
[2018-11-10] MEDS: MUPIROCIN 2% 22 GM OINT NS SCH ×2 (08:45→22:43)
[2018-11-10] MEDS ORDERED: BISACODYL 10 MG SUPP PR ONE (09:53)
[2018-11-10] MEDS: ATORVASTATIN CALCIUM 40 MG TAB PO SCH (22:43)
[2018-11-11 07:15] VITALS: BP 145/89
--- NOTE | 2018-11-11 07:30 | SOAPPROG ---
SOAP Progress Note Assessment/Plan: POD #4: CABG x 5 (MARCH-LAD, SV-RI, SV-OM, SV-RCA, SV-Dx), EVH LLE NSTEMI/severe CAD w RWMA and low normal LV systolic fx - Preserved LV systolic fx post revasc. Hemodynamically stable postop course. Extubated without incident. No vasoactive support. No dysrhythmias. Minimal volume overload. Secondary prevention w ASA, BB and statin. ARB if sufficient BP. Acute expected blood loss anemia - Stable. No transfusions required. VTE prophylaxis with SCDs. Current everyday vaper - Desire to reduce/quit expressed. Smoking cessation aids declined at this time. DVT prophylaxis - SCDs only. Disposition - home today w/o services. Subjective: Eager to get home today. Denies pain/SOB. Objective: Vital Signs Temp Pulse Resp BP Pulse Ox 36.5 C 110 H 14 145/89 H 97 11/11/18 07:14 11/11/18 07:14 11/11/18 07:14 11/11/18 07:14 11/11/18 07:14 Laboratory Results 11/10/18 05:05 11/09/18 05:30 11/10/18 11/11/18 11/12/18 05:59 05:59 05:59 Intake Total 700 1445 Output Total 1798 2050 Balance -1095 -605 Physical Exam - Physical Exam General Appearance: WD/WN, alert, no apparent distress EENT: No scleral icterus (R), No scleral icterus (L) Neck: normal inspection Respiratory: No respiratory distress Cardiac/Chest: regular rate, rhythm Abdomen: non-tender, soft, No distended Skin: normal color Extremities: No pedal edema Neuro/Psych: no motor/sensory deficits, alert, normal mood/affect, oriented x 3 ICD10 Worksheet Patient Problems: Problems Problem Status Onset Acute blood loss as cause of postoperative anemia Acute Coronary artery disease Acute S/P CABG x 5 Acute
[2018-11-11] MEDS: METOPROLOL TARTRATE 25 MG TAB PO SCH (08:02)
[2018-11-11] MEDS: PANTOPRAZOLE SODIUM 40 MG TAB PO SCH (08:02)
[2018-11-11] MEDS: ASPIRIN 81 MG CHEWABLE TAB PO SCH (08:03)
[2018-11-11] MEDS: SENNOSIDES/DOCUSATE SODIUM TAB PO SCH (08:05)
[2018-11-11] MEDS: MUPIROCIN 2% 22 GM OINT NS SCH (08:05)
--- NOTE | 2018-11-11 09:07 | PDDCSUM ---
Discharge Summary Discharge Summary: ADMISSION DATE: 11/05/18 DISCHARGE DATE: 11/11/18 ADMISSION DIAGNOSES 1. NSTEMI/severe CAD 2. Nicotine abuse DISCHARGE DIAGNOSES 1. As above 2. Acute post-op blood loss anemia PROCEDURES 11/07/18 (Ira Garcia): CABGx5 (MARCH-LAD, SVG-D1, SVG-ramus, SVG-OM, SVG-RCA), EVH left HPI 71M with NSTEMI and severe CAD admitted for urgent surgical revascularization. HOSPITAL COURSE BY PROBLEM LIST 1. NSTEMI/severe CAD - preserved LV systolic fx post revasc. Hemodynamically stable postop course. Extubated without incident. No vasoactive support. No dysrhythmias. Minimal volume overload. Secondary prevention w ASA, BB and statin. 2. Nicotine abuse - desire to reduce/quit expressed. Smoking cessation aids declined at this time. 3. Acute post-op blood loss anemia - stable without the need for transfusions. CONDITION Good DISPOSITION Home, self-care PERTINENT DISCHARGE CLINICAL INFORMATION Vitals: 145/89, 110 SR, 97% on RA, -1 KG Exam: NAD, SR, No respiratory distress, ND, soft, NTP, BLE without edema ACTIVITY Pt was instructed on activity limitations and which problems to call [facility] with. Please see Discharge Plan in chart for specifics. DISCHARGE MEDICATIONS As per Home Medication List [facility] PENDING STUDIES/LABS 1. CXR prior to surgical follow-up FOLLOW-UP 1. Leroy Garcia (CT Surgery), 11/18/18, 12:00 PM 2. Deejay Matson (Cardiology), to be arranged at surgical f/u
--- NOTE | 2018-11-14 17:55 | POSTANESTH ---
Post Anesthetic Evaluation Cardiovascular Status: Normal, Stable Respiratory Status: Normal, Stable Level of Consciousness/Mental Status: Can Participate in Eval Pain Control: Adequate, Prn Tx Ordered Nausea/Vomiting Control: Adequate, Prn Tx Ordered Complications Possibly Related to Anesthesia: None Noted
== END 2018-11-11 11:32 | disposition home or self-care (01) | DRG 234 ==
LOC: OBSVTOIN 11:52 → F2W 16:09 → F2N 11-07 10:30 → F2W 11-08 12:30
PROVIDERS: ADMIT Thoracic Surgery (Cardiothoracic Vascular Surgery); ATTEND Thoracic Surgery (Cardiothoracic Vascular Surgery)
PROC: B2111ZZ Fluoroscopy of Multiple Coronary Arteries using Low Osmolar Contrast (ICD-10-PCS; 2018-11-05)
PROC: 4A023N8 Measurement of Cardiac Sampling and Pressure, Bilateral, Percutaneous Approach (ICD-10-PCS; 2018-11-05)
PROC: B2151ZZ Fluoroscopy of Left Heart using Low Osmolar Contrast (ICD-10-PCS; 2018-11-05)
PROC: 06BQ4ZZ Excision of Left Saphenous Vein, Percutaneous Endoscopic Approach (ICD-10-PCS; principal; 2018-11-07 10:30)
PROC: 021309W Bypass Coronary Artery, Four or More Arteries from Aorta with Autologous Venous Tissue, Open Approach (ICD-10-PCS; principal; 2018-11-07 10:30)
PROC: 02100Z9 Bypass Coronary Artery, One Artery from Left Internal Mammary, Open Approach (ICD-10-PCS; principal; 2018-11-07 10:30)
PROC: 5A1221Z Performance of Cardiac Output, Continuous (ICD-10-PCS; principal; 2018-11-07 10:30)
DX: I21.4 Non-ST elevation (NSTEMI) myocardial infarction (principal); D62 Acute posthemorrhagic anemia; E86.9 Volume depletion, unspecified; I25.10 Atherosclerotic heart disease of native coronary artery without angina pectoris; Z72.0 Tobacco use; G89.29 Other chronic pain; Z80.9 Family history of malignant neoplasm, unspecified
CPT/HCPCS: 82435-PO; 82565-PO; 82947-PO; 83605-ER; 84132-PO; 84295-PO; 84484-ER; 84520-PO; 85014-ER; 96374; 97116-GP; 97161-GP; 97165-GO; 97530-GO; 97530-GP; 97535-GO; C1769; J0153; J0282; J0690; J1100; J1200; J1265; J1644; J1815; J2001; J2150; J2250; J2260; J2270; J2370; J2405; J2440; J2704; J2720; J2765; J2930; J3010; J3475; P9041; Q9967

== ENCOUNTER → 2018-11-14 | Outpatient (CLI) | payer OTHER | LOC: FIMAGING 09:45 | PROVIDERS: ATTEND Thoracic Surgery (Cardiothoracic Vascular Surgery) | DX: J98.11 Atelectasis (principal); J90 Pleural effusion, not elsewhere classified; Z95.1 Presence of aortocoronary bypass graft ==